=== PATIENT | female | born 1980 ===

== ENCOUNTER 2016-12-22 13:09 | Emergency (ER) | payer OTHER ==
[2016-12-22 13:33] VITALS: PULSE 80; RESP 19; TEMP 98.4; O2SAT 100
[2016-12-22 13:38] VITALS: BP 131/79
--- NOTE | 2016-12-22 14:04 | ED PDOC ---
HPI: Abdomen Time Seen by Provider: 12/22/16 13:40 Chief Complaint (Nursing): Abdominal Pain Chief Complaint (Provider): Suprapubic pain, (+) preg in clinic today History Per: Patient History/Exam Limitations: language barrier (translater used ) Current Symptoms Are (Timing): Still Present Additional Complaint(s): Pt G3 or 4 P2 Pt has 2 girls and was for the 3rd time last month. Pt states she took medications to have a medical . Pt reports bleeding the first 2 weeks of november. Pt reports (-) test after bleeding. Pt went back to the clinic today for f/u and pap smear. At her appointment she had a (+) test. Past Medical History Reviewed: Historical Data, Nursing Documentation, Vital Signs Vital Signs: Last Vital Signs Temp 98.4 F 12/22/16 13:25 Pulse 80 12/22/16 13:25 Resp 19 12/22/16 13:25 BP 131/79 12/22/16 13:38 Pulse Ox 100 12/22/16 17:35 - Medical History PMH: No Chronic Diseases - Surgical History Surgical History: No Surg Hx - Family History Family History: States: Unknown Family Hx - Living Arrangements Living Arrangements: With Family - Social History Current smoker - smoking cessation education provided: No Alcohol: None Drugs: Denies - Home Medications Home Medications: Ambulatory Orders Medication Instructions Recorded miSOPROStol [Cytotec] 600 mcg PO ONCE #3 tab 12/22/16 - Allergies Allergies/Adverse Reactions: Allergies Allergy/AdvReac Type Severity Reaction Status Date / Time No Known Allergies Allergy Verified 12/22/16 13:33 Review of Systems ROS Statement: Except As Marked, All Systems Reviewed And Found Negative Genitourinary Female: Positive for: Pelvic Pain Physical Exam - Reviewed Nursing Documentation Reviewed: Yes Vital Signs Reviewed: Yes - Physical Exam Appears: Positive for: Well, Non-toxic, No Acute Distress Head Exam: Positive for: ATRAUMATIC, NORMAL INSPECTION, NORMOCEPHALIC Skin: Positive for: Normal Color, Warm, DRY Eye Exam: Positive for: Normal appearance ENT: Positive for: Normal ENT Inspection Neck: Positive for: Normal, Painless ROM Cardiovascular/Chest: Positive for: Regular Rate, Rhythm Respiratory: Positive for: Normal Breath Sounds. Negative for: Accessory Muscle Use, Respiratory Distress Gastrointestinal/Abdominal: Positive for: Normal Exam, Bowel Sounds, Soft. Negative for: Tenderness Back: Positive for: Normal Inspection Extremity: Positive for: Normal ROM Neurologic/Psych: Positive for: Alert, Oriented - Laboratory Results Result Diagrams: 12/22/16 14:14 12/22/16 14:14 - ECG O2 Sat by Pulse Oximetry: 100 Medical Decision Making Medical Decision Making: Pt states she has not had intercourse at all since taking cytotec 3 [address] ago[address]iscuss[address] with [address]. Bates. Possible retained products on US. Advised to give 600mcg PO cytotec and f/u with FIELD EDUCATION COORDINATOR sunday. Discussed with patient to return for heavy vaginal bleeding, weakness, dizziness or light headedness. Disposition - Clinical Impression Clinical Impression: Retained products of conception - Disposition Referrals: [facility] [Outside] Disposition: Routine/Home Disposition Time: 17:36 Condition: GOOD Prescriptions: miSOPROStol [Cytotec] 600 mcg PO ONCE #3 tab Instructions: Misoprostol (By mouth)
[2016-12-22 14:22] LABS: HEMATOCRIT 32.6 % (34.0-47.0); MEAN CELL VOLUME 73.9 fl (81.0-99.0); MEAN CORPUSCULAR HEMOGLOBIN 23.8 pg (27.0-31.0); MEAN CORPUSCULAR HGB CONC 32.2 g/dL (33.0-37.0); RED CELL DISTRIBUTION WIDTH 17.7 % (11.5-14.5); WHITE BLOOD COUNT 6.2 K/uL (4.8-10.8)
[2016-12-22 14:37] LABS: PARTIAL THROMBOPLASTIN TIME 25.8 SECONDS (23.3-32.5)
[2016-12-22 14:39] LABS: ALB/GLOB RATIO 1.4 (1.0-2.1); ALKALINE PHOSPHATASE 67 U/L (38-126); ALT/SGPT 54 U/L (9-52); AST/SGOT 79 U/L (14-36); BILIRUBIN,TOTAL 0.7 mg/dl (0.2-1.3); BLOOD UREA NITROGEN 10 mg/dl (7-17); CALCIUM 8.8 mg/dL (8.4-10.2); CARBON DIOXIDE 25 mmol/L (22-30); CHLORIDE 105 mmol/L (98-107); GFR AFRICAN-AMERICAN > 60; GLUCOSE,RANDOM 90 mg/dL (65-105); POTASSIUM 3.8 MMOL/L (3.6-5.0); SODIUM 139 mmol/l (132-148); TOTAL PROTEIN 7.3 G/DL (6.3-8.2)
--- NOTE | 2016-12-22 16:48 | US ---
HISTORY: 3 weeks ago, pain (+) test COMPARISON: None available. TECHNIQUE: Transvaginal ultrasound examination of the pelvis was performed. FINDINGS: UTERUS: Measures 7.5 x 4.6 x 4.7 cm. Normal in size and appearance. No fibroid or other mass lesion seen. ENDOMETRIUM: Measures 14.6 mm in diameter. The endometrium is heterogeneous demonstrate increased vascularity suspicious for retained product of conception. CERVIX: No cervical abnormality identified. RIGHT OVARY: Measures 2.6 x 1.7 x 2.3 cm. No solid mass. Normal flow. Complex cystic lesions seen at the right ovary measures 1.3 x 1.1 x 1.5 centimeter . LEFT OVARY: Measures 2.3 x 1.6 x 1.9 cm. No solid mass. Normal flow. Sub centimeters cyst seen also at the left ovary likely represent prominent follicle. FREE FLUID: No significant free fluid noted. OTHER FINDINGS: None. IMPRESSION: Heterogeneous thick endometrium with increased vascularity suspicious for retained product of conception. Correlation with beta HCG level is suggested. Small complex cyst at the right ovary measures 1.5 centimeter.
== END 2016-12-22 17:56 | disposition home or self-care (01) ==
LOC: H.ER 13:09
DX: O26.891 Other specified pregnancy related conditions, first trimester (principal)